=== PATIENT | female | born 1965 | race American Indian/Alaskan Native ===

== ENCOUNTER 2022-03-01 06:18 | Day surgery (SDC) | payer MEDICARE ==
[~2022-03-01 06:18] MED LIST: MIDAZOLAM 2 MG/2 ML INJ IV NR; SODIUM CHLORIDE 0.9% 1000 ML 1,000 ML IV SCH; ceFAZolin/Water 2 GM/20 ML 2 GM/20 ML SYRINGE IV NR; fentaNYL 100 MCG/2 ML INJ IV PRN
--- NOTE | 2022-03-01 07:33 | Anesthesia Day of Surgery ---
Anesthesia Day of Surgery - Day of Surgery Patient Examined: Yes Patient H&P Reviewed: Yes Patient is NPO: Yes
--- NOTE | 2022-03-01 07:33 | Anesthesia Consultation ---
Anesthesia Consult and Med Hx Date of service: 03/01/22 - Airway Anesthetic Teeth Evaluation: Poor (multiple missing teeth; few remaining lower teeth), Edentulous (upper) ROM Head & Neck: Adequate Mental/Hyoid Distance: Adequate Mallampati Class: Class II Intubation Access Assessment: Possibly Difficult - Pre-Operative Health Status ASA Pre-Surgery Classification: ASA3 Proposed Anesthetic Plan: MAC Nerve Block: supraclavicular - Pulmonary Hx Smoking: No Hx Asthma: Yes (seasonal asthma; last INH 12/2021) Hx Respiratory Symptoms: No Hx Sleep Apnea: Yes (+ CPAP) - Cardiovascular System Hx Hypertension: Yes (took nifedipine this morning) Hx Heart Attack/AMI: No Hx Percutaneous Transluminal Coronary Angioplasty (PTCA): No - Central Nervous System CVA: No - Endocrine Hx End Stage Renal Disease: Yes (last HD 02/28/22) Hx Liver Disease: No Hx Insulin Dependent Diabetes: No Hx Non-Insulin Dependent Diabetes: No Hx Thyroid Disease: No - Other Systems Hx Obesity: Yes (BMI 32) - Additional Comments Anesthesia Medical History Comments: No hx anesthetic complications.
[2022-03-01] MEDS ORDERED: ROPIVACAINE/PF (0.5%) 5 MG/1 ML 30 ML VIAL ONE (07:38)
[2022-03-01] MEDS ORDERED: LIDOCAINE MPF (2%) 20 MG/1 ML VIAL 5 ML ONE (07:43)
[2022-03-01] MEDS ORDERED: ONDANSETRON 4 MG/2 ML INJ ONE (07:43)
[2022-03-01] MEDS ORDERED: propofoL 200 MG/20 ML VIAL IV ONE ×3 (07:43→10:05)
[2022-03-01] MEDS ORDERED: fentaNYL 100 MCG/2 ML INJ ONE (07:43)
[2022-03-01 07:45] LABS: Hematocrit 35.1 % (30.3-42.9); Hemoglobin 11.5 gm/dl (10.1-14.3); Mean Corpuscular HGB Conc 33 % (30-34); Mean Corpuscular Volume 92 fl (79-97); Platelet Count 333 K/mm3 (140-440); Red Blood Count 3.81 M/mm3 (3.65-5.03); Red Cell Distribution Width 18.9 % (13.2-15.2)
[2022-03-01 07:55] LABS: Calcium 8.8 mg/dL (8.4-10.2)
[2022-03-01] MEDS ORDERED: DEXTROSE 50% IN WATER (25GM) 50 ML SYRINGE IV ONE (08:12)
[2022-03-01] MEDS ORDERED: KETAMINE/STERILE WATER 50 MG/ML SYRINGE ONE (09:26)
[2022-03-01] MEDS ORDERED: BUPIVACAINE/PF (0.5%) 5 MG/1 ML 10 ML VIAL INFILTRATI ONE (10:31)
[2022-03-01] MEDS ORDERED: HEPARIN 10,000 UNITS/10 ML VIAL IV ONE (10:31)
[2022-03-01] MEDS ORDERED: rifAMPin 600 MG VIAL IV ONE (10:32)
[2022-03-01] MEDS ORDERED: SODIUM CHLORIDE 0.9% P/F 10 ML VIAL INFILTRATI ONE (10:32)
[2022-03-01] MEDS ORDERED: SODIUM CHLORIDE 0.9% IRR 1,500 ML BOTTLE IR ONE (10:32)
[2022-03-01] MEDS ORDERED: BUPIVACAINE/PF (0.5%) 5 MG/1 ML 30 ML VIAL INFILTRATI ONE (10:33)
[2022-03-01] MEDS ORDERED: SODIUM CHLORIDE 0.9% 250 ML IVPB IV ONE (10:33)
--- NOTE | 2022-03-01 10:48 | Short Stay Summary ---
Short Stay Documentation Date of service: 03/01/22 Narrative H&P: See H&P - History H&P: obtained from office - Allergies and Medications Current Medications: Allergies No Known Allergies Allergy (Verified 02/22/22 17:18) Home Medications Medication Instructions Recorded Confirmed Last Taken Type AtorvaSTATin [Lipitor] 10 mg PO QHS 02/22/22 02/22/22 Unknown History Cinacalcet HCl [Sensipar] 90 mg PO DAILY 02/22/22 02/22/22 Unknown History Ferric Citrate (Nf) [Auryxia] 210 mg PO TIDWM 02/22/22 02/22/22 Unknown History Gabapentin [Neurontin] 800 mg PO BID 02/22/22 02/22/22 Unknown History NIFEdipine [Nifedipine ER] 30 mg PO QDAY 02/22/22 02/22/22 Unknown History Active Medications Fentanyl (Fentanyl 100 Mcg/2 Ml Inj) 100 mcg IV ONCE PRN PRN Reason: sedation for nerve block Stop: 03/01/22 23:59 Sodium Chloride (Nacl 0.9% 1000 Ml) 1,000 mls @ 42 mls/hr IV DIRECT ETELVINA Stop: 03/01/22 23:59 Midazolam HCl (Midazolam 2 Mg/2 Ml Inj) 2 mg IV PREOP NR Stop: 03/01/22 23:59 - Brief post op/procedure progress note Date of procedure: 03/01/22 Pre-op diagnosis: End-Stage Renal Disease Post-op diagnosis: same Procedure: Creation of Left Axillary Artery to Left Axillary Vein Arteriovenous Loop Graft with 6 mm Bovine Artegraft Anesthesia: MAC, regional Surgeon: TIARA SHEIKH Estimated blood loss: 50-100ml Pathology: none Condition: stable - Disposition Condition at discharge: Good Disposition: 01 HOME / SELF CARE / HOMELESS Short Stay Discharge Plan Activity: other (No heavy lifting with left arm for 2 weeks.) Wound: open to air, keep clean and dry, other (Okay to wash the left arm incisions with soap and water but do not soak in water for 2 weeks) Follow up with: TIARA SHEIKH MD [Staff Physician] - 14 Days Prescriptions: HYDROcodone/APAP 5-325 [[place] 5/325] 1 each PO Q6HR PRN #30 tablet PRN Reason: Pain
--- NOTE | 2022-03-01 10:50 | Operative Report ---
Operative Report Operative Report: Date of Procedure: 03/01/2022 Pre-operative Diagnosis: End-Stage Renal Disease Post-operative Diagnosis: Same Procedure(s): 1. The Left Axillary Artery to Axillary Vein Arteriovenous Loop Graft with 6 mm Bovine Artegraft Surgeon: Nick Rosado M.D. Process Improvement Consultant: None Anesthesia: Regional/MAC EBL: 50 mL Counts: Correct Complications: None Condition: Stable Findings: Successful creation of left arm AV graft with adequate thrill at the completion of the case. Specimen: None Indication: The patient is a 56-year-old female with a history of end-stage renal disease who is on hemodialysis through a permacath. She had a previous left arm arteriovenous fistula that has failed and requires permanent dialysis access. She is in need of a AV graft. She was given the risk, benefits, and alternative procedures and consented to the procedure. Description of Procedure: Prior to being transported to the operating room the patient had a regional block performed of the left upper extremity. She was then transported to the operating room, laid in supine position, and sedated. Her left arm was then prepped and draped in normal sterile fashion. A longitudinal incision was created on the medial aspect of the arm and carried down to the axillary vein using sharp dissection. This was dissected circumferentially and controlled with a vessel loop. I then turned my attention to the axillary artery. The axillary artery was dissected circumferentially and controlled with 2 vessel loops. I used a Amy-Wick tunneler to tunnel the graft in a loop fashion. A counterincision was created, in the mid arm to assist with pulling the graft through the tunnel. I systemically heparinized the patient with 3000 units of heparin IV and then used angled DeBakey clamps to control flow in the axillary artery. I created an arteriotomy using an 11 blade and Bashir scissors. I then created an end-to-side anastomosis using a 6-0 Prolene in running fashion. After completing the anastomosis I released the clamps allowing flow into the graft, which had adequate flow. I reclamped the graft just distal to the arterial anastomosis. I then cut the venous portion of the graft to length and beveled the end. I controlled the axillary vein with a Satinsky clamp and created a venotomy using an 11 blade and Bashir scissors. I created an end-to-side anastomosis using a 6-0 Prolene in running fashion. Prior to completing the anastomosis I flashed the vein as well as the arterial inflow of the graft and then reclamped both vessels. I flushed the venotomy with heparinized saline, to clear any thrombus. I then completed the anastomosis and removed all clamps allowing flow into the graft. There was an adequate thrill. Hemostasis was achieved with manual pressure.. Once hemostasis was achieved both incisions were anesthetized with 0.5% Marcaine and closed in 2 layers using a 3-0 Vicryl, in a running fashion, in the deep dermal layer, and a 4-0 Monocryl, in running fashion, in the subcuticular layer. The wounds were then dressed with Dermabond. The patient tolerated the procedure well. All sponge, needle, and instrument counts were correct. The patient was taken to recovery in stable condition.
[2022-03-01 12:56] VITALS: BP 133/73
--- NOTE | 2022-03-01 14:55 | Post Anesthesia Evaluation ---
- Post Anesthesia Evaluation Patient Participated: Yes Airway Patent: Yes Stable Respiratory Function: Yes Nausea/Vomiting: No Temp > 96.8F: Yes Pain Manageable: Yes Adequeate Hydration: Yes Anesthesia Complications: No
== END 2022-03-01 12:20 | disposition home or self-care (01) ==
LOC: OR 06:18
PROVIDERS: ATTEND Surgery Vascular Surgery
DX: I12.0 Hypertensive chronic kidney disease with stage 5 chronic kidney disease or end stage renal disease (principal); N18.6 End stage renal disease; E78.00 Pure hypercholesterolemia, unspecified; J45.909 Unspecified asthma, uncomplicated; G47.33 Obstructive sleep apnea (adult) (pediatric); E66.9 Obesity, unspecified; Z87.01 Personal history of pneumonia (recurrent); Z99.2 Dependence on renal dialysis; Z91.81 History of falling; Z98.890 Other specified postprocedural states
CPT/HCPCS: 36415; 36830; 80048; 82962; 85027; C1768; J0690; J1644; J2250; J2405; J2704; J2795; J3010; J3490; J7030; J7050